=== PATIENT | male | born 2000 | race Caucasian/White ===

== ENCOUNTER 2021-02-10 09:43 | Emergency (ER) | payer OTHER, BC ==
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
[2021-02-10 10:19] LABS: ANION GAP 15.6 mmol/L (5-15); CHLORIDE,CL 105 mmol/L (98-107); SODIUM,NA 143 mmol/L (136-145)
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
[2021-02-10 11:59] VITALS: BP 121/81; PULSE 62
== END 2021-02-10 11:07 | disposition home or self-care (01) ==
LOC: VM.ED 09:43 → SUPCPDRO 09:43 → VM.ED 11:07
DX: M25.551 Pain in right hip (principal); V49.40XA Driver injured in collision with unspecified motor vehicles in traffic accident, initial encounter
CPT/HCPCS: 70450; 80053; 85025; 99283; 99285-25

== ENCOUNTER 2021-02-10 19:36 | Emergency (ER) | payer OTHER, BC ==
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
[2021-02-10] MEDS: Take Home: Ondansetron 4 MG Tab.DIS, 2 Tab Pack PO ONE (20:10)
[2021-02-10 21:35] VITALS: BP 124/86; PULSE 86
== END 2021-02-10 20:15 | disposition home or self-care (01) ==
LOC: VM.ED 19:36
DX: R11.0 Nausea (principal); F07.81 Postconcussional syndrome
CPT/HCPCS: 99283; A9270

== ENCOUNTER 2024-03-04 20:13 | Emergency (ER) | payer OTHER, BC ==
[2024-03-04] MEDS: Sodium Chloride 0.9% 1,000 ML IV ONE ×3 (20:35→21:30)
[2024-03-04 21:03] LABS: APPEARANCE,URINE CLEAR (CLEAR); BILIRUBIN,URINE NEGATIVE (NEGATIVE); COLOR,URINE YELLOW (YELLOW); GLUCOSE,URINE NEGATIVE (NEGATIVE); KETONES,URINE NEGATIVE (NEGATIVE); LEUKOCYTE ESTERASE,URINE NEGATIVE (NEGATIVE); NITRITE,URINE NEGATIVE (NEGATIVE); OCCULT BLOOD,URINE NEGATIVE (NEGATIVE); PROTEIN,URINE NEGATIVE (NEGATIVE)
[2024-03-04 21:04] LABS: BASOPHILS PERCENT AUTO 0.5 % (0.2-1.2); EOSINOPHILS ABSOLUTE AUTO 0.1 x10^3/uL (0.0-0.5); EOSINOPHILS PERCENT AUTO 1.3 % (0.0-4.0); HEMOGLOBIN 14.5 g/dL (14.0-18.0); IMMATURE GRAN ABSOLUTE AUTO 0.01 x10^3/uL (0.00-0.07); LYMPHOCYTES ABSOLUTE AUTO 2.2 x10^3/uL (1.0-4.8); LYMPHOCYTES PERCENT AUTO 29.3 % (25.0-50.0); MEAN CORPUSCULAR HGB CONC 35.4 g/dL (32.0-36.0); MEAN CORPUSCULAR VOLUME 87.8 fL (78.0-93.0); MONOCYTES ABSOLUTE AUTO 0.9 x10^3/uL (0.0-0.8); MONOCYTES PERCENT AUTO 11.3 % (2.0-11.0); NEUTROPHILS ABSOLUTE AUTO 4.3 x10^3/uL (1.8-7.7); NEUTROPHILS PERCENT AUTO 57.5 % (50.0-80.0); PLATELET COUNT,PLT 258 x10^3/uL (130-400); RED BLOOD CELL COUNT 4.67 x10^6/uL (4.5-6.0); WHITE BLOOD CELL COUNT,WBC 7.6 x10^3/uL (4.0-10.0)
[2024-03-04 21:24] LABS: A/G RATIO 1.48; ANION GAP 12.8 mmol/L (5-15); BILIRUBIN TOTAL 1.8 mg/dL (0.2-1.0); CALCIUM 8.7 mg/dL (8.5-10.1); CREATININE 1.4 mg/dL (0.70-1.30); EST CRCL DRUG DOSING (CG) 91.16 mL/min; POTASSIUM,K 3.8 mmol/L (3.5-5.1); PROTEIN TOTAL,TP 6.7 g/dL (6.4-8.2)
[2024-03-04] MEDS: Ondansetron 4 MG/2 ML SDV IVPUSH ONE (21:29)
[2024-03-04 21:37] VITALS: PULSE 74
[2024-03-04 22:07] VITALS: BP 112/66
== END 2024-03-04 22:00 | disposition home or self-care (01) ==
LOC: VM.ED 20:13
DX: T67.5XXA Heat exhaustion, unspecified, initial encounter (principal)
CPT/HCPCS: 36415; 80053; 81003; 85025; 96361; 96374; 99284; J2405; J7030; 99283